=== PATIENT | male | born 1980 | race Caucasian/White ===

== ENCOUNTER 2021-11-16 12:04 | Emergency (ER) | payer BC ==
[~2021-11-16] VITALS: Ht 175.3 cm; Wt 70.5 kg
[2021-11-16] MEDS ORDERED: loperamide 2mg capsule PO ONE (12:25)
[2021-11-16] MEDS ORDERED: acetaminophen 325mg tablet PO ONE (12:25)
[2021-11-16] MEDS ORDERED: ondansetron 4mg rapidly disintigrating tab PO ONE (12:25)
[2021-11-16] MEDS ORDERED: normal saline 1000ml 1,000 ML IV ONE (13:45)
[2021-11-16] MEDS ORDERED: proCHLORperazine 10 MG/2 ml inj IV ONE (13:45)
[2021-11-16] MEDS ORDERED: metoclopramide 5 mg/ml inj IV ONE (13:45)
[2021-11-16] MEDS ORDERED: ketorolac trometh. 30mg/ml inj. IV ONE (13:45)
[2021-11-16] MEDS ORDERED: mag hydrox/Alum hydrox/simeth 30ml oral suspension PO ONE (13:50)
[2021-11-16] MEDS ORDERED: LOPE2CAP PO (13:50)
[2021-11-16] MEDS ORDERED: pantoprazole IV 80 MG in normal saline 100ml IV soln 100 ML IV ONE (13:50)
[2021-11-16] MEDS ORDERED: LIDOcaine Viscous 15ml cup MM ONE (13:50)
[2021-11-16] MEDS ORDERED: PANT-47 PO (13:50)
[2021-11-16] MEDS ORDERED: ONDA8TAB13 PO (13:50)
[2021-11-16] MEDS ORDERED: famotidine/PF 10 mg/ml inj IV ONE (13:50)
[2021-11-16] MEDS: pantoprazole 40MG/NS 100ML BAG 100 ML IV SCH (16:09)
[2021-11-16 16:41] VITALS: BP 123/78
== END 2021-11-16 16:44 | disposition home or self-care (01) ==
LOC: ER 12:05
DX: K52.9 Noninfective gastroenteritis and colitis, unspecified (principal); Z20.822 Contact with and (suspected) exposure to COVID-19; R51.9 Headache, unspecified; R11.2 Nausea with vomiting, unspecified; R50.9 Fever, unspecified; Z79.899 Other long term (current) drug therapy
CPT/HCPCS: 87635; 96361; 96374; 96375; 99284; C9113; C9803; J0780; J1885; J2765; J3490; J7030